=== PATIENT | female | born 1935 | race Caucasian/White ===

== ENCOUNTER 2018-03-23 09:51 | Day surgery (SDC) | payer OTHER ==
[~2018-03-23] VITALS: Ht 152.4 cm; Wt 117.9 kg
[~2018-03-23 09:51] MED LIST: AVALIDE 300/1 TABLET PO; CARDIZEM CD,CA240 MG PO; CELEBREX200 MG PO; FLONASE SENSIM5.9 ML BOTH NARES; HUMIRA40 MG/0.1 SC; HYDRO EYES PO; LO-DOSE ASPIRIN81 M1 PO; NIACIN1000 MG PO; PRESERVISION A1 EAC2 PO; PRILOSEC20 MG PO; PROBIOTIC1 EAC2 PO; ZOCOR20 MG PO; ZYLOPRIM100 MG PO
[2018-03-23 10:28] VITALS: BP 143/65
[2018-03-23 14:05] VITALS: BP 146/64
[2018-03-23 15:05] VITALS: BP 129/62
== END 2018-03-23 15:10 | disposition home or self-care (01) ==
LOC: SDC 09:51
PROVIDERS: Ophthalmology
DX: H44.112 Panuveitis, left eye (principal); H35.342 Macular cyst, hole, or pseudohole, left eye; H35.372 Puckering of macula, left eye; E11.319 Type 2 diabetes mellitus with unspecified diabetic retinopathy without macular edema; I25.10 Atherosclerotic heart disease of native coronary artery without angina pectoris; K21.9 Gastro-esophageal reflux disease without esophagitis; L40.9 Psoriasis, unspecified; I10 Essential (primary) hypertension; E78.5 Hyperlipidemia, unspecified; I44.0 Atrioventricular block, first degree; I65.23 Occlusion and stenosis of bilateral carotid arteries; R01.1 Cardiac murmur, unspecified; Z98.61 Coronary angioplasty status; Z88.0 Allergy status to penicillin; Z88.1 Allergy status to other antibiotic agents; Z88.8 Allergy status to other drugs, medicaments and biological substances
CPT/HCPCS: 87529 90; 87799 90; 88160; J0690; J1100; J2405; J2795; J3300